=== PATIENT | female | born 1960 | race Caucasian/White ===

== ENCOUNTER 2018-03-17 09:44 | Day surgery (SDC) | payer OTHER ==
[~2018-03-17] VITALS: Ht 165.1 cm; Wt 91.4 kg
[~2018-03-17 09:44] MED LIST: CALCA400CH; CYAN500; ESCI10; LEVSOD50; Omeprazole20 M1; PROP60
== END 2018-03-17 11:26 | disposition home or self-care (01) ==
LOC: ORSCSDS 09:44
PROVIDERS: Internal Medicine Gastroenterology
PROC: 0DBM8ZX Excision of Descending Colon, Via Natural or Artificial Opening Endoscopic, Diagnostic (ICD-10-PCS; principal; 2018-03-17 11:00)
PROC: 0DBL8ZX Excision of Transverse Colon, Via Natural or Artificial Opening Endoscopic, Diagnostic (ICD-10-PCS; principal; 2018-03-17 11:00)
DX: Z12.11 Encounter for screening for malignant neoplasm of colon (principal); K63.5 Polyp of colon; K64.8 Other hemorrhoids; K57.30 Diverticulosis of large intestine without perforation or abscess without bleeding; Z86.010 Personal history of colon polyps; Z83.71 Family history of colonic polyps; Z79.899 Other long term (current) drug therapy
CPT/HCPCS: 88305; J7120

== ENCOUNTER 2023-07-14 13:17 | Day surgery (SDC) | payer OTHER ==
[~2023-07-14] VITALS: Ht 162.6 cm; Wt 81.9 kg
[2023-07-14] MEDS ORDERED: Prinivil10 MG (13:33)
[2023-07-14] MEDS ORDERED: MELO7.5 PO (13:33)
[2023-07-14 14:54] VITALS: BP 135/85
== END 2023-07-14 14:56 | disposition home or self-care (01) ==
LOC: ORSCSDS 13:17
PROVIDERS: Specialist
PROC: 0DJD8ZZ Inspection of Lower Intestinal Tract, Via Natural or Artificial Opening Endoscopic (ICD-10-PCS; principal; 2023-07-14 14:30)
DX: Z12.11 Encounter for screening for malignant neoplasm of colon (principal); Z86.010 Personal history of colon polyps; K64.8 Other hemorrhoids; K57.30 Diverticulosis of large intestine without perforation or abscess without bleeding; I10 Essential (primary) hypertension; Z79.899 Other long term (current) drug therapy
CPT/HCPCS: J2405; J2704; J7120

== ENCOUNTER → 2024-03-22 | Outpatient (CLI) | payer OTHER ==
[~2024-03-22] MED LIST changes: +MELO7.5 PO; +Prinivil10 MG
[2024-03-26 09:47] LABS: HPV HIGH RISK BY TMA Not Detected; HPV SOURCE Cervical/Vag
== END ==
LOC: LAB SHORT 15:31 → LAB 15:31
PROVIDERS: Family Medicine
DX: Z01.419 Encounter for gynecological examination (general) (routine) without abnormal findings (principal)
CPT/HCPCS: 87624; G0123